=== PATIENT | female | born 1950 | race Caucasian/White ===

== ENCOUNTER 2021-12-02 14:30 | Inpatient (IN) | payer OTHER, SELFPAY ==
[2021-12-02 14:38] VITALS: BP 198/100; PULSE 88; O2SAT 98
[2021-12-02 15:36] VITALS: BP 191/92; PULSE 83; RESP 18; TEMP 36.8; O2SAT 97; BMI 48.7
--- NOTE | 2021-12-02 22:28 | PC.NURSE ---
pt is ambulatory in . states she wants to go home. skin pwd. using cane.
--- NOTE | 2021-12-02 23:14 | ED.FEMALEGU ---
HPI - Female Genitourinary General Chief complaint: Urogenital-Female Stated complaint: UTI SX'S Time Seen by Provider: 12/02/21 23:12 Source: patient and family (Spouse) Mode of arrival: ambulatory Limitations: no limitations History of Present Illness HPI Narrative: 71 years old female came in for evaluation of chills and urinary frequency, and painful urination symptoms. Symptoms started 10 days ago with painful frequent urination and chills, patient was seen by her PCP and was started on bed, because persistent of symptoms helpful for UTI and elevation of kidney function test patient was hospitalized for 2 days for IV antibiotic, then IV antibiotic was switched to oral antibiotic and patient was discharged home, patient started to feel deterioration of her symptoms again. Today symptoms with chills, painful and frequent urination, urinary incontinence. Patient also been having right flank area of discomfort, with generalized body ache. Related Data Allergies Allergy/AdvReac Type Severity Reaction Status Date / Time acetaminophen [From PERCOCET] Allergy Unknown UNKNOWN Verified 12/02/21 15:35 atenolol [ATENOLOL] Allergy Unknown DIFFICULTY Verified 12/02/21 15:35 BREATHING calcium [From CITRACAL] Allergy Unknown RASH Verified 12/02/21 15:35 doxycycline [DOXYCYCLINE] Allergy Unknown DIARRHEA Verified 12/02/21 15:35 gabapentin [From NEURONTIN] Allergy Unknown RASH Verified 12/02/21 15:35 lansoprazole [From PREVACID] Allergy Unknown HIVES Verified 12/02/21 15:35 levofloxacin [From LEVAQUIN] Allergy Unknown UNKNOWN Verified 12/02/21 15:35 lisinopril [LISINOPRIL] Allergy Unknown HEADACHES Verified 12/02/21 15:35 methadone [METHADONE] Allergy Unknown UNKNOWN Verified 12/02/21 15:35 montelukast [From SINGULAIR] Allergy Unknown UNKNOWN Verified 12/02/21 15:35 omeprazole [OMEPRAZOLE] Allergy Unknown RASH Verified 12/02/21 15:35 oxycodone [From PERCOCET] Allergy Unknown UNKNOWN Verified 12/02/21 15:35 simvastatin [From ZOCOR] Allergy Unknown UNKNOWN Verified 12/02/21 15:35 verapamil [VERAPAMIL] Allergy Unknown AGITATION Verified 12/02/21 15:35 tizanidine AdvReac Dry Mucus Verified 12/02/21 15:35 Membranes Review of Systems Review of Systems: All other systems are reviewed and are negative Constitutional: Reports as per HPI and Reports no additional constitutional complaints Eyes: Reports as per HPI and Reports no additional eye complaints Reports system reviewed and no additional complaints, except as documented Cardiovascular: Reports as per HPI and Reports no additional cardiovascular complaints Respiratory: Reports as per HPI and Reports no additional respiratory complaints Gastrointestinal: Reports as per HPI and Reports no additional gastrointestinal complaints Genitourinary: Reports no additional female genitourinary complaints Musculoskeletal: Reports no additional musculoskeletal complaints Skin/Breast: Reports system reviewed and no additional complaints, except as docu Psychiatric: Reports no additional psychiatric complaints Endocrine: Reports no additional endocrine complaints Hematologic/Lymphatic: Reports no additional hematologic/lymphatic complaints Allergic/Immunologic: Reports no additional allergic/immunologic complaints Reports system reviewed and no additional complaints, except as documented and Reports Abnormal speech present [facility] Social History Social History Advance Directives: No Advance Directives Information Provided: No Physical Exam Vital Signs: Vital Signs: Last Vital Signs Temp 98.3 F 12/02/21 15:36 Pulse 86 12/02/21 23:30 Resp 22 H 12/02/21 23:30 BP 189/103 H 12/02/21 23:30 Pulse Ox 98 12/02/21 23:30 O2 Del Method 12/02/21 23:30 BMI result Body Mass Index 48.7 Vital signs have been reviewed as appeared to be correct. Blood pressure normal. Heart rate normal. Respiration rate normal. Temperature normal. Oxygen saturation normal. Appearance: Alert. Oriented X3. No acute distress. Head: Normal external exam. Normocephalic. Atraumatic. No Hudson signs noted. No raccoon eyes noted Eyes: PERRLA. EOMI. Conjunctiva and sclera normal. Eyelids normal. ENT: TM's Normal. Pharynx normal. Uvula midline. Moist mucous membranes. No trismus noted. No drooling noted. No muffled voice noted. Neck: Normal inspection. Neck supple. FROM. No adenopathy. Thyroid Normal. No meningeal signs. No neck mass noted. CVS: Normal heart rate and rhythm. Heart sound normal. No murmurs noted. Pulses normal throughout. Respiratory: No respiratory distress. Painless inspiration. Breath sounds normal. No wheezes/rales/rhonchi noted. Chest nontender. No accessory muscle usage noted or decreased air movement noted. Abdomen: Soft and nontender. Bowel sounds normal in all 4 quadrants. No distention noted. No organomegaly noted. No visible injury noted. Back: No CVA tenderness. Full range of motion noted. Skin: Skin warm and dry. Normal skin color. Normal skin turgor. No rashes/lesions/lacerations noted. Extremities: No lower extremity edema. Extremities exhibit normal range of motion. Extremities nontender. Neuro: Oriented X 3. Cranial nerve exam: II-XII are grossly intact No motor deficit. No sensory deficit. Reflexes normal. Course Course Course Narrative: 71 years old female came in with symptoms of UTI of frequency urination with dysuria for 10 days, patient received multiple attempts of different oral antibiotic with no success of treating her symptoms during the course of the patient's symptoms patient needed hospitalization at [facility]. Because persistence of symptoms of UTI patient do not meet criteria for source for sepsis but will admit for IV hydration and IV antibiotic. MDM - Female Genitourinary Medical Records Attestation: I reviewed the patient's medical records. Lab Data Attestation: I reviewed the patient's lab results. Result diagrams: 12/03/21 00:16 12/03/21 00:16 Labs: Lab Results 12/02/21 12/03/21 12/03/21 Range/Units 23:38 00:02 00:16 WBC 10.7 (4.8-10.8) X10*3/uL RBC 3.90 L (4.20-5.50) X10*6/uL Hgb 11.6 L (12.0-16.0) g/dl Hct 35.0 L (37.0-47.0) % MCV 89.7 (80.0-98.0) fL MCH 29.7 (27.0-33.0) pg MCHC 33.1 (31.0-35.0) g/dl RDW 13.7 (11.0-16.0) % Plt Count 273 (160-400) X10*3/uL MPV 9.3 L (9.4-12.3) fL Absolute Nucleated RBC 0.000 (0.0-0.012) X10*3/uL Nucleated RBC % (auto) 0.0 (0.0-0.2) /100WBC PT (10.0-13.1) SEC INR (0.9-1.1) APTT (24.1-38.0) SEC Sodium (135-145) mmol/L Potassium (3.3-5.1) mmol/L Chloride (96-108) mmol/L Carbon Dioxide (22-29) mmol/L Anion Gap (12-20) BUN (9-16) mg/dL Creatinine (0.5-1.4) mg/dL Estim Creat Clear Calc Estimated GFR Random Glucose (60-115) mg/dL Lactic Acid 0.6 (0.5-2.0) mmol/L Calcium (8.4-10.2) mg/dL Total Bilirubin (0.0-1.0) mg/dL AST (5-31) U/L ALT (0-31) U/L Alkaline Phosphatase (39-117) U/L Total Protein (6.5-8.0) g/dL Albumin (3.5-5.0) g/dL Lipase (8-78) U/L Urine Color YELLOW Urine Appearance CLEAR Urine pH 6.5 (5.0-8.0) Ur Specific [place] 1.010 (1.005-1.025) Urine Protein 1+ H (NEG-TRACE) MG/DL Urine Glucose (UA) NEG (NEG) MG/DL Urine Ketones NEG (NEG) MG/DL Urine Blood TRACE (NEG) Urine Nitrite NEG (NEG) Ur Leukocyte Esterase NEG (NEG) Urine RBC 1-4 (0) /HPF Urine WBC 10-14 H (0-4) /HPF Ur Squamous Epith Cells 2+ /LPF Urine Bacteria 1+ /LPF 12/03/21 12/03/21 Range/Units 00:16 00:16 WBC (4.8-10.8) X10*3/uL RBC (4.20-5.50) X10*6/uL Hgb (12.0-16.0) g/dl Hct (37.0-47.0) % MCV (80.0-98.0) fL MCH (27.0-33.0) pg MCHC (31.0-35.0) g/dl RDW (11.0-16.0) % Plt Count (160-400) X10*3/uL MPV (9.4-12.3) fL Absolute Nucleated RBC (0.0-0.012) X10*3/uL Nucleated RBC % (auto) (0.0-0.2) /100WBC PT 20.2 H (10.0-13.1) SEC INR 1.7 H (0.9-1.1) APTT 34.7 (24.1-38.0) SEC Sodium 134 L (135-145) mmol/L Potassium 4.6 (3.3-5.1) mmol/L Chloride 98 (96-108) mmol/L Carbon Dioxide 25 (22-29) mmol/L Anion Gap 16 (12-20) BUN 23 H (9-16) mg/dL Creatinine 1.28 (0.5-1.4) mg/dL Estim Creat Clear Calc 48.7 Estimated GFR 41 Random Glucose 131 H (60-115) mg/dL Lactic Acid (0.5-2.0) mmol/L Calcium 9.2 (8.4-10.2) mg/dL Total Bilirubin 0.4 (0.0-1.0) mg/dL AST 27 (5-31) U/L ALT 38 H (0-31) U/L Alkaline Phosphatase 180 H (39-117) U/L Total Protein 7.3 (6.5-8.0) g/dL Albumin 3.8 (3.5-5.0) g/dL Lipase 23 (8-78) U/L Urine Color Urine Appearance Urine pH (5.0-8.0) Ur Specific [place] (1.005-1.025) Urine Protein (NEG-TRACE) MG/DL Urine Glucose (UA) (NEG) MG/DL Urine Ketones (NEG) MG/DL Urine Blood (NEG) Urine Nitrite (NEG) Ur Leukocyte Esterase (NEG) Urine RBC (0) /HPF Urine WBC (0-4) /HPF Ur Squamous Epith Cells /LPF Urine Bacteria /LPF Discharge Plan Discharge Clinical Impression: Urinary tract infection Patient Disposition: Admitted As Inpatient
[2021-12-02 23:30] VITALS: BP 189/103; PULSE 86; RESP 22; O2SAT 98
[2021-12-03] VITALS (7 sets, daily range): BP systolic 172–199; BP diastolic 78–93; PULSE 81–89; RESP 14–20; TEMP 36.8–37; O2SAT 96–98
[2021-12-03 00:14] LABS: Appearance Urine CLEAR; Color Urine YELLOW; Glucose Urine UA NEG (NEG); Leukocyte Esterase Urine NEG (NEG); Nitrite Urine NEG (NEG); PH 6.5 (5.0-8.0); UACC Culture Trigger NO; Urine Blood TRACE (NEG); Urine Ketones NEG (NEG); Urine Protein 1+ MG/DL (NEG-TRACE)
[2021-12-03 00:19] LABS: Lactic Acid 0.6 mmol/L (0.5-2.0)
[2021-12-03 00:23] LABS: Hemoglobin 11.6 g/dl (12.0-16.0); Mean Corpuscular HGB Conc 33.1 g/dl (31.0-35.0); Mean Corpuscular Hemoglobin 29.7 pg (27.0-33.0); Mean Corpuscular Volume 89.7 fL (80.0-98.0); Mean Platelet Volume 9.3 fL (9.4-12.3); Platelet Count 273 X10*3/uL (160-400); Red Cell Distribution Width 13.7 % (11.0-16.0); White Blood Count 10.7 X10*3/uL (4.8-10.8)
[2021-12-03 00:24] LABS: Squamous Epithelial Cell Urine 2+ /LPF
[2021-12-03 00:25] LABS: Bacteria Urine 1+ /LPF
[2021-12-03 00:36] LABS: INTERNATIONAL NORM RATIO 1.7 (0.9-1.1); Prothrombin Time 20.2 SEC (10.0-13.1)
[2021-12-03 00:38] LABS: Partial Thromboplastin Time 34.7 SEC (24.1-38.0)
--- NOTE | 2021-12-03 00:42 | PC.NURSE ---
Upon initial contact, pt stated that she is usually very difficult to draw labs and obtain IV access on. This RN attempted to obtain IV access using US visualization but failed with two attempts. Dr. Stover then attempted to obtain IV access in the EJ but failed after two attempts. Dr. Nick then came into the room and successfully obtained IV access in the left basilic vein using the US machine. Labs were drawn and fluids infusion started at this time.
[2021-12-03 00:44] LABS: Alanine Aminotransferase 38 U/L (0-31); Albumin Level 3.8 g/dL (3.5-5.0); Alkaline Phosphatase 180 U/L (39-117); Anion Gap 16 (12-20); Aspartate Amino Transferase 27 U/L (5-31); Bilirubin Total 0.4 mg/dL (0.0-1.0); Blood Urea Nitrogen 23 mg/dL (9-16); Calcium 9.2 mg/dL (8.4-10.2); Carbon Dioxide 25 mmol/L (22-29); Chloride 98 mmol/L (96-108); Creatinine Clr Calc Pharmacy 48.7; Estimated Glomerular Filt Rate 41; Glucose Random 131 mg/dL (60-115); Lipase 23 U/L (8-78); Potassium 4.6 mmol/L (3.3-5.1); Sodium 134 mmol/L (135-145); Total Protein 7.3 g/dL (6.5-8.0)
[2021-12-03] MEDS: 0.9 % Sodium Chloride 1,000 ML 999 ML IV (00:52)
--- NOTE | 2021-12-03 01:03 | P.HPHOSP_ITS ---
History of Present Illness Date of Service: 12/03/21 Chief Complaint: dysuria this is a 71-year-old female with past medical history of hypertension, chronic pain, pulmonary emboli on warfarin presents to the hospital with complaints of persistent dysuria. Patient reports that about a week ago she developed dysuria and urinary frequency, she visited her primary care physician was started her on p.o. antibiotics, she continued to have pain was feeling very lousy, had chills, no fever of 102. She then was seen and admitted for observation at [facility], and after 2 days of IV antibiotics she was discharged on Ceftin, she tried septum for 2 days but reports that she continued to feel lousy, feeling sick, had dysuria and frequency up until this morning and therefore decided to come to [place] for further management. She continues to have chills, no chest pain, no abdominal pain nausea vomiting, no diarrhea or constipation,no lower extremity edema. On arrival to the ED patient is hemodynamically stable with elevated blood pressure otherwise vitals unremarkable Labs are significant for WBC count of 10.7, hemoglobin of 11.6, hematocrit 35, INR of 1.7, labs otherwise unremarkable. UA is positive for WBC patient will be admitted for further management of UTI failed outpatient therapy Review of Systems Review of Systems: Yes all other systems are reviewed and are negative [facility] Medical History (Updated 12/03/21 @ 06:39 by Vane Baeza MD) History of chronic pain History of pulmonary embolism Hypertension Family History (Updated 12/03/21 @ 06:40 by Vane Baeza MD) Mother Bladder cancer Surgical History (Updated 12/03/21 @ 06:39 by Vane Baeza MD) H/O spinal fusion History of tonsillectomy Social History (Updated 12/03/21 @ 06:40 by Vane Baeza MD) Alcohol intake: never Patient Tobacco Use Status: Never used Tobacco Use of substances other than those prescribed or required for medical reasons: No Advance Directives: No Advance Directives Information Provided: No Meds Allergies Allergy/AdvReac Type Severity Reaction Status Date / Time acetaminophen [From PERCOCET] Allergy Unknown UNKNOWN Verified 12/02/21 15:35 atenolol [ATENOLOL] Allergy Unknown DIFFICULTY Verified 12/02/21 15:35 BREATHING calcium [From CITRACAL] Allergy Unknown RASH Verified 12/02/21 15:35 doxycycline [DOXYCYCLINE] Allergy Unknown DIARRHEA Verified 12/02/21 15:35 gabapentin [From NEURONTIN] Allergy Unknown RASH Verified 12/02/21 15:35 lansoprazole [From PREVACID] Allergy Unknown HIVES Verified 12/02/21 15:35 levofloxacin [From LEVAQUIN] Allergy Unknown UNKNOWN Verified 12/02/21 15:35 lisinopril [LISINOPRIL] Allergy Unknown HEADACHES Verified 12/02/21 15:35 methadone [METHADONE] Allergy Unknown UNKNOWN Verified 12/02/21 15:35 montelukast [From SINGULAIR] Allergy Unknown UNKNOWN Verified 12/02/21 15:35 omeprazole [OMEPRAZOLE] Allergy Unknown RASH Verified 12/02/21 15:35 oxycodone [From PERCOCET] Allergy Unknown UNKNOWN Verified 12/02/21 15:35 simvastatin [From ZOCOR] Allergy Unknown UNKNOWN Verified 12/02/21 15:35 verapamil [VERAPAMIL] Allergy Unknown AGITATION Verified 12/02/21 15:35 tizanidine AdvReac Dry Mucus Verified 12/02/21 15:35 Membranes Active Medications: Current Medications Ceftriaxone Sodium 1 gm/ (Sodium Chloride) 50 mls @ 100 mls/hr IV ONCE ONE Stop: 12/03/21 01:09 Home Medications Medication Instructions Recorded Confirmed Last Taken Type aspirin 81 mg capsule 81 mg PO DAILY 12/03/21 12/03/21 Unknown History celecoxib 200 mg capsule 200 mg PO BID 12/03/21 12/03/21 Unknown History cetirizine 10 mg tablet (Zyrtec) 20 mg PO DAILY 12/03/21 12/03/21 Unknown History esomeprazole magnesium 20 mg 2 cap PO BID 12/03/21 12/03/21 Unknown History capsule,delayed release (Nexium 24HR) fluorometholone 0.1 % eye 1 drp ophthalmic (eye) BID 12/03/21 12/03/21 Unknown History drops,suspension fluticasone propionate 50 2 spray intranasal DAILY 12/03/21 12/03/21 Unknown History mcg/actuation nasal spray,suspension hydrocodone 10 mg-acetaminophen 1 tab PO 4-5XD PRN Pain 12/03/21 12/03/21 Unknown History 325 mg tablet morphine 15 mg tablet,extended 15 mg PO TID 12/03/21 12/03/21 Unknown History release olmesartan 20 mg tablet 30 mg PO DAILY 12/03/21 12/03/21 Unknown History triamterene 37.5 1 tab PO DAILY 12/03/21 12/03/21 Unknown History mg-hydrochlorothiazide 25 mg tablet warfarin 5 mg tablet 5 mg PO DAILY 12/03/21 12/03/21 Unknown History Physical Exam Vital Signs and Narrative: Vital Signs: Last Vital Signs Temp 98.3 F 12/02/21 15:36 Pulse 86 12/02/21 23:30 Resp 22 H 12/02/21 23:30 BP 189/103 H 12/02/21 23:30 Pulse Ox 98 12/02/21 23:30 O2 Del Method 12/02/21 23:30 BMI result Body Mass Index 48.7 Const: General: cooperative and no acute distress Orientation/consciousness: patient oriented x3 Eyes: General: appearance normal, both eyes and all related structures Resp: Effort & Inspection: normal respiratory effort Auscultation: clear to auscultation bilaterally Cardio: Rate: regular rate Rhythm: regular rhythm GI: Palpation (GI): Soft to palpation Auscultation: normal bowel sounds Skin: General skin exam: no rashes or lesions noted Neuro: General: patient oriented x3 Cognition (Neuro): normal cognition Extrem: General: Yes normal to inspection and Yes no pedal edema Results Labs CBC and Chem 7: 12/03/21 03:59 12/03/21 03:59 Labs: Laboratory Results - last 24 hr 12/02/21 12/03/21 12/03/21 23:38 00:02 00:16 MCV 89.7 MCH 29.7 MCHC 33.1 RDW 13.7 Plt Count 273 MPV 9.3 L Absolute Nucleated RBC 0.000 Nucleated RBC % (auto) 0.0 PT INR APTT Anion Gap Estim Creat Clear Calc Estimated GFR Random Glucose Lactic Acid 0.6 Calcium Total Bilirubin AST ALT Alkaline Phosphatase Total Protein Albumin Lipase Urine Color YELLOW Urine Appearance CLEAR Urine pH 6.5 Ur Specific [place] 1.010 Urine Protein 1+ H Urine Glucose (UA) NEG Urine Ketones NEG Urine Blood TRACE Urine Nitrite NEG Ur Leukocyte Esterase NEG Urine RBC 1-4 Urine WBC 10-14 H Ur Squamous Epith Cells 2+ Urine Bacteria 1+ 12/03/21 12/03/21 00:16 00:16 MCV MCH MCHC RDW Plt Count MPV Absolute Nucleated RBC Nucleated RBC % (auto) PT 20.2 H INR 1.7 H APTT 34.7 Anion Gap 16 Estim Creat Clear Calc 48.7 Estimated GFR 41 Random Glucose 131 H Lactic Acid Calcium 9.2 Total Bilirubin 0.4 AST 27 ALT 38 H Alkaline Phosphatase 180 H Total Protein 7.3 Albumin 3.8 Lipase 23 Urine Color Urine Appearance Urine pH Ur Specific [place] Urine Protein Urine Glucose (UA) Urine Ketones Urine Blood Urine Nitrite Ur Leukocyte Esterase Urine RBC Urine WBC Ur Squamous Epith Cells Urine Bacteria Assessment and Plan (1) Urinary tract infection: Status: Acute Plan 71-year-old female with past medical history of PE as well as hypertension presents to the hospital with complaints of dysuria failed outpatient therapy # dysuria - failed outpatient therapy x2 - continues to be symptomatic - UA negative likely secondary to recent p.o. antibiotic use - will treat with IV antibiotics - follow cultures # hypertension - elevated - continue home medications # history of PE - continue warfarin DVT prophylaxis: Warfarin given failed outpatient therapy, patient will require minimal 2 night hospital stay for further management of UTI Quality Stroke Does the patient have a stroke diagnosis?: No VTE Prior VTE?: No VTE Risk Level:: Medical - moderate - high VTE Device Contraindication: Treatment Not Indicated VTE Drug Contraindication: N/A - Med Ordered
[2021-12-03] MEDS: cefTRIAXone sodium 1 GM in 0.9 % Sodium Chloride 50 ML IV ×2 (01:18→13:32)
[2021-12-03] MEDS: 0.9 % Sodium Chloride 1,000 ML 100 ML IVCONT ×2 (03:46→16:45)
[2021-12-03 04:15] LABS: Hematocrit 31.9 % (37.0-47.0); Hemoglobin 10.5 g/dl (12.0-16.0); Mean Corpuscular HGB Conc 32.9 g/dl (31.0-35.0); Mean Corpuscular Hemoglobin 29.8 pg (27.0-33.0); Mean Corpuscular Volume 90.6 fL (80.0-98.0); Mean Platelet Volume 10.4 fL (9.4-12.3); Platelet Count 223 X10*3/uL (160-400); Red Blood Count 3.52 X10*6/uL (4.20-5.50); Red Cell Distribution Width 13.6 % (11.0-16.0); White Blood Count 10.7 X10*3/uL (4.8-10.8)
[2021-12-03 04:32] LABS: Anion Gap 16 (12-20); Blood Urea Nitrogen 22 mg/dL (9-16); Calcium 8.9 mg/dL (8.4-10.2); Carbon Dioxide 23 mmol/L (22-29); Chloride 100 mmol/L (96-108); Creatinine Clr Calc Pharmacy 54.2; Estimated Glomerular Filt Rate 47; Glucose Random 134 mg/dL (60-115); Potassium 4.7 mmol/L (3.3-5.1); Sodium 134 mmol/L (135-145)
[2021-12-03 04:43] LABS: Band Neutrophils Percent 1 % (3-5); Eosinophils Absolute Manual 0.3 X10*3/uL (0.0-0.4); Eosinophils Percent Manual 3 % (0-4); Lymphocytes Absolute Manual 1.9 X10*3/uL (1.2-4.9); Lymphocytes Percent Manual 18 % (20-40); Metamyelocytes Absolute 0.1 X10*3/uL; Metamyelocytes Percent 1 %; Monocytes Absolute Manual 0.7 X10*3/uL (0.1-1.2); Monocytes Percent Manual 7 % (2-11); Myelocytes Absolute 0.2 X10*/uL; Myelocytes Percent 2 %; Neutrophils Absolute Manual 7.4 X10*3/uL (2.0-8.3); Neutrophils Percent Manual 68 % (45-73)
[2021-12-03 04:45] LABS: Large Platelet PRESENT; Platelet Estimate NORMAL (NORMAL); Platelet Morphology Comment NOTED; RBC Morphology NORMAL
[2021-12-03] MEDS: Enoxaparin Sodium 40 MG/0.4 ML SYRINGE SUBCUT (05:22)
[2021-12-03 05:55] LABS: COVID-19 Test Negative (Negative)
--- NOTE | 2021-12-03 09:21 | PHA.MEDREC ---
Pharmacy Consult ? Medication Reconciliation Pharmacy has reviewed the medication reconciliation completed by Patrick. Patient reports that celecoxib was stopped due to her kidney function at [facility], therefore I removed for the home list. Patient reports takin Morphine XR 15 mg at 0700, 1500 and 11 then takes [place] at 0700, 12:30. 1830 and 2300. Patient reports taking famotidine, vitamine E multivitamin as well as Restasis eye drops, refresh eye drops and a saline nasal spray. Dr. Sandhu was updated on change to medication list. Patient reports she was not given her medication while at [facility] so she does not know her current warfarin schedule but confirmed she took 5mg yesterday. INR will be monitor and adjusted while she is admitted here. Patient also reported she wants her to bring in her esomeprazole instead of be given omeprazole. Izabel Malin, PharmD
[2021-12-03] MEDS: Morphine Sulfate ER 15 MG TABLET.ER PO ×2 (09:42→14:50)
[2021-12-03] MEDS: Lidocaine 4 % Patch ADH..PATCH 2 PATCH TRANSDERMA (09:43)
[2021-12-03] MEDS: Aspirin Enteric Coated 81 MG TABLET.DR PO (09:43)
[2021-12-03] MEDS: 0.9 % Sodium Chloride Flush 3 ML SYRINGE IVFLUSH ×2 (09:43→15:56)
--- NOTE | 2021-12-03 10:16 | MHC.CM.PN ---
Attempted to meet with patient in regards to discharge planning. Patient currently out of the room. No family present. Will attempt to meet again. Continue to monitor for d/c needs.
[2021-12-03] MEDS: Triamterene/HCTZ 37.5/25 TABLET 1 TAB PO (10:27)
--- NOTE | 2021-12-03 10:29 | PC.NURSE ---
patient refused some of morning medication . pharmacy contacted for clarification on orderers . patient to bring in patients medication from home for confirmation on specific medication. Provider aware . patients aware of plan of care .
--- NOTE | 2021-12-03 11:58 | PM.EVENT ---
Event Note Date of Service: 12/03/21 Event Note: Feels better since admission Restarting her home medications Amlodipine for high blood pressure Continue ceftriaxone as antibiotic
[2021-12-03] MEDS: Famotidine 20 MG TABLET 40 MG PO (15:55)
--- NOTE | 2021-12-03 17:35 | PC.NURSE ---
Report received from Ania in the ED. Pt a/o. BPs elevated, awaiting pharmacy to verify home meds for pt to take. at bedside. Callbell and belongings within reach.
[2021-12-03] MEDS: Warfarin Sodium 5 MG TABLET PO (18:27)
[2021-12-03] MEDS: hydrALAZINE HCl 20 MG/ML VIAL 5 MG IVPUSH (20:33)
[2021-12-04 01:00] VITALS: BP 172/90
[2021-12-04] MEDS: cefTRIAXone sodium 1 GM in 0.9 % Sodium Chloride 50 ML IV ×2 (01:13→12:27)
[2021-12-04] MEDS: Morphine Sulfate ER 15 MG TABLET.ER PO ×3 (01:24→15:23)
[2021-12-04 02:49] VITALS: BP 170/80
[2021-12-04] MEDS: 0.9 % Sodium Chloride Flush 3 ML SYRINGE IVFLUSH (02:57)
[2021-12-04] MEDS: 0.9 % Sodium Chloride 1,000 ML 100 ML IVCONT (06:30)
[2021-12-04 07:10] VITALS: BP 184/93; PULSE 95; RESP 18; TEMP 36.4; O2SAT 98
[2021-12-04] MEDS: Loratadine 10 MG TABLET 20 MG PO (08:18)
[2021-12-04] MEDS: Triamterene/HCTZ 37.5/25 TABLET 1 TAB PO (08:18)
[2021-12-04] MEDS: Multivitamin TABLET 1 TAB PO (08:18)
[2021-12-04] MEDS: Aspirin Enteric Coated 81 MG TABLET.DR PO (08:18)
[2021-12-04] MEDS: Vitamin E (Dl,Tocopheryl Acet) 180 MG (400 UNIT) CAPSULE PO (08:18)
[2021-12-04] MEDS: Lidocaine 4 % Patch ADH..PATCH 2 PATCH TRANSDERMA (08:20)
[2021-12-04] MEDS: polyethylene glycoL 3350 17 GM POWD.PACK PO (10:11)
[2021-12-04] MEDS: amLODIPine Besylate 5 MG TABLET PO (10:11)
[2021-12-04 10:32] LABS: INTERNATIONAL NORM RATIO 2.3 (0.9-1.1); Prothrombin Time 27.7 SEC (10.0-13.1)
[2021-12-04 11:14] VITALS: BP 192/90; PULSE 81; RESP 18; TEMP 36.3; O2SAT 94
[2021-12-04] MEDS: PT OWN (Cyclosporine [Restasis] 0.05 % Dropperette) 1 EACH EYE-BOTH (12:23)
[2021-12-04] MEDS: Fluticasone Propionate Nasal 16 GM SPRAY 2 SPRAY NOSTRIL-B (12:23)
[2021-12-04] MEDS: Sodium Chloride 0.65 % Nasal 44 ML SPRBTL 1 SPRAY NOSTRIL-B (12:24)
--- NOTE | 2021-12-04 14:20 | PM.DS ---
DS: Providers Provider Date of Service: 12/04/21 Date of admission: 12/03/21 01:00 Primary care physician: Alvaro Lees MD DS: Diagnosis Discharge Diagnosis (1) Urinary tract infection: Status: Acute (2) Uncontrolled hypertension: Status: Acute DS: Summary Hospital Course Hospital Course: Admission note HPI ?this is a 71-year-old female with past medical history of hypertension, chronic pain, pulmonary emboli on warfarin presents to the hospital with complaints of persistent dysuria.? Patient reports that about a week ago she developed dysuria and urinary frequency, she visited her primary care physician was started her on p.o. antibiotics,? she continued to have pain was feeling very lousy, had chills, no fever of 102.? She then was seen and admitted for observation at [facility], and after 2 days? of IV antibiotics she was discharged on Ceftin, she tried septum for 2 days but reports that she continued to feel lousy, feeling sick, had dysuria and frequency up until this morning and therefore decided to come to [place] for further management.? She continues to have chills, no chest pain, no abdominal pain nausea vomiting, no diarrhea or constipation,no lower extremity edema. On arrival to the ED patient is hemodynamically stable with elevated blood pressure otherwise vitals unremarkable Labs are significant for? WBC count of 10.7, hemoglobin of 11.6, hematocrit 35, INR of 1.7, labs otherwise unremarkable.? UA is positive for WBC ?patient will be admitted for further management of UTI failed outpatient therapy Hospital course The patient was admitted to the hospital for evaluation of dysuria for failed outpatient antibiotic therapy for urinary tract infection. Treated with IV ceftriaxone with good response as her symptoms resolved and dysuria improved. Cultures negative as the patient was treated previously with antibiotics. To be discharged home on cefaclor for the next 3 days. blood pressure was noted to be significantly elevated requiring addition of amlodipine with some response and her blood pressure. As to monitor blood pressure at home and report readings to PCP for further adjustments of her home medications. Continue cefaclor for the next 3 days Continue home blood pressure medications with addition of amlodipine 5 mg daily Check your blood pressure twice a day and report 1 week readings to your PCP for further adjustments of her medications. Time Spent with Patient Time attestation: Total time spent providing and/or coordinating discharge services: Discharge coordination time: Greater than 30 minutes Quality: Safe Use of Opioids Does Pt have an Active Cancer Diagnosis on the Problem List?: No Quality: Stroke Does the patient have a stroke diagnosis?: No Physical Exam Vital Signs: Vital Signs: Last Vital Signs Temp 97.3 F 12/04/21 11:14 Pulse 81 12/04/21 11:14 Resp 18 12/04/21 11:14 BP 192/90 H 12/04/21 11:14 Pulse Ox 94 12/04/21 11:14 O2 Del Method 12/04/21 11:14 BMI result Body Mass Index 48.7 DS: Data Data Completed and Pending Labs on day of discharge: Laboratory Results - last 24 hr 12/04/21 09:52 PT 27.7 H INR 2.3 H Preliminary micro results at discharge 12/02/21 00:45 Blood Culture - Preliminary Blood - Venous No growth after 24 hours. 12/02/21 00:45 Blood Culture - Preliminary Blood - Venous No growth after 24 hours. Discharge Plan Discharge Patient Disposition: Home, Self-Care Discharge Diagnosis: Urinary tract infection Uncontrolled hypertension Referrals: Alvaro Lees MD [Primary Care Provider] - 1 Week Discharge Medications: New cefaclor 250 mg capsule 250 mg PO Q8H Qty: 9 0RF amlodipine 5 mg tablet 5 mg PO DAILY Qty: 30 0RF Continued fluorometholone 0.1 % drops,suspension 1 drp ophthalmic (eye) BID triamterene-hydrochlorothiazid 37.5-25 mg tablet 1 tab PO DAILY morphine 15 mg tablet extended release 15 mg PO TID fluticasone propionate 50 mcg/actuation spray,suspension 2 spray intranasal DAILY hydrocodone-acetaminophen 10-325 mg tablet 1 tab PO 0700,1230,1830,2300 warfarin 5 mg tablet 5 mg PO DAILY esomeprazole magnesium [Nexium 24HR] 20 mg capsule,delayed release(DR/EC) 2 cap PO BIDAC cetirizine [Zyrtec] 10 mg Tablet 20 mg PO DAILY olmesartan 20 mg tablet 30 mg PO DAILY aspirin 81 mg Capsule 81 mg PO DAILY lidocaine 5 % adhesive patch,medicated 2 patch topical DAILY famotidine 40 mg tablet 1 tab PO DAILY@1630 multivitamin Tablet 1 tab PO DAILY carboxymethylcellulose sodium [Refresh Tears] 0.5 % Drops 1 drp ophthalmic (eye) Q2H PRN (Reason: Dry Eye(S)) vitamin E 400 unit Capsule 400 unit PO DAILY cyclosporine [Restasis] 0.05 % Dropperette 1 drp OPHTHALMIC (EYE) BID Saline Nasal 0.65 % Aerosol,[place] 1 spray INTRANASAL BID Discontinued cefuroxime axetil 250 mg tablet 1 tab PO BID Discharge Orders: Discharge Order (Routine); Ordered 12/04/21 Ordered By: Felicia Sandhu Diet: Low salt diet Activity on Discharge: As tolerated Stand Alone Forms: Patient Portal Discharge page Care Plan Goals: Read below Health Concerns: Read below Plan of Treatment: Read below Assessment: You were admitted to the hospital for evaluation of urinary tract infection. Treated with IV antibiotics of ceftriaxone with good response as your symptoms resolved. Your blood pressure was noted to be significantly elevated requiring addition of amlodipine. Continue cefaclor for the next 3 days Continue home blood pressure medications with addition of amlodipine 5 mg daily Check your blood pressure twice a day and report 1 week readings to your PCP for further adjustments of her medications.
[2021-12-04 14:36] VITALS: BP 158/98
--- NOTE | 2021-12-04 14:55 | MHC.CM.PN ---
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
[2021-12-04 15:21] LABS: INTERNATIONAL NORM RATIO 2.2 (0.9-1.1); Prothrombin Time 25.9 SEC (10.0-13.1)
== END 2021-12-04 16:54 | disposition home or self-care (01) | DRG 690 ==
LOC: HO.ED 12-03 00:59 → HO.EDOVER 12-03 01:23 → HO.S3 12-03 18:47
PROVIDERS: Admitting Provider Internal Medicine; Emergency Provider Emergency Medicine; PCP Family Medicine; Visit Provider Student in an Organized Health Care Education/Training Program
DX: N39.0 Urinary tract infection, site not specified (principal); Z98.1 Arthrodesis status; Z86.711 Personal history of pulmonary embolism; Z20.822 Contact with and (suspected) exposure to COVID-19; Z88.1 Allergy status to other antibiotic agents; Z88.5 Allergy status to narcotic agent; Z88.8 Allergy status to other drugs, medicaments and biological substances; Z79.01 Long term (current) use of anticoagulants; Z79.82 Long term (current) use of aspirin; Z79.899 Other long term (current) drug therapy
CPT/HCPCS: 36415; 80048; 80053; 81001; 83605; 83690; 85007; 85027; 85610; 85730; 87040; 87635; 96361; 96365; 99285; J0696; J1650